=== PATIENT | female | born 1985 | race Caucasian/White ===

== ENCOUNTER → 2016-07-26 | Outpatient (CLI) | payer BC ==
[~2016-07-26] MED LIST: ADVIL200 MG PO; PERCOCET 5-3251 EACH PO; PRENATAL 1+1)(P1 TAB PO; PROAIR HFA8.5 GM INH; PROTONIX40 MG PO; TROSPIUM CHLORI60 MG PO; ULTRAM50 MG PO
== END ==
LOC: GRAD 14:12
DX: N20.0 Calculus of kidney (principal)

== ENCOUNTER → 2016-08-31 | Day surgery (SDC) | payer BC ==
[~2016-08-31] VITALS: Ht 177.8 cm; Wt 112.6 kg
== END | disposition disaster alternative care site (69) ==
LOC: GPOC 08-30 15:00 → GEND 07:30 → GPOC 15:00
PROC: 0DB68ZX Excision of Stomach, Via Natural or Artificial Opening Endoscopic, Diagnostic (ICD-10-PCS; principal; 2016-08-31)
DX: K22.10 Ulcer of esophagus without bleeding (principal); K26.9 Duodenal ulcer, unspecified as acute or chronic, without hemorrhage or perforation; K44.9 Diaphragmatic hernia without obstruction or gangrene; J45.909 Unspecified asthma, uncomplicated; Z88.8 Allergy status to other drugs, medicaments and biological substances
CPT/HCPCS: J2001; J7030

== ENCOUNTER → 2016-11-02 | Day surgery (SDC) | payer BC ==
[~2016-11-02] VITALS: Ht 177.8 cm; Wt 111.2 kg
== END | disposition disaster alternative care site (69) ==
LOC: GPOC 10-28 09:00 → GEND 07:38 → GPOC 08:00
PROC: 0DB68ZX Excision of Stomach, Via Natural or Artificial Opening Endoscopic, Diagnostic (ICD-10-PCS; principal; 2016-11-02)
PROC: 0DB98ZX Excision of Duodenum, Via Natural or Artificial Opening Endoscopic, Diagnostic (ICD-10-PCS; 2016-11-02)
DX: K29.70 Gastritis, unspecified, without bleeding (principal); K31.89 Other diseases of stomach and duodenum; J45.909 Unspecified asthma, uncomplicated; Z88.5 Allergy status to narcotic agent; Z88.8 Allergy status to other drugs, medicaments and biological substances
CPT/HCPCS: J2001; J7030